=== PATIENT | male | born 1960 | race Caucasian/White ===

== ENCOUNTER 2019-01-09 15:40 | Emergency (ER) | payer MEDICAID, OTHER ==
[~2019-01-09] VITALS: Ht 180.3 cm; Wt 105.0 kg
[2019-01-09] MEDS ORDERED: ACET-3067 PO (16:25)
[2019-01-09] MEDS ORDERED: PRED20TA PO (16:25)
[2019-01-09] MEDS ORDERED: HYDROcodone/acetaminophen 5mg/325mg tablet PO ONE (16:25)
[2019-01-09] MEDS ORDERED: ACYC-202 PO (16:25)
[2019-01-09 16:47] VITALS: BP 182/90
== END 2019-01-09 16:48 | disposition home or self-care (01) ==
LOC: ER 15:41
DX: G51.0 Bell's palsy (principal); H53.8 Other visual disturbances
CPT/HCPCS: 99282